=== PATIENT | female | born 1985 | race Two or more races ===

== ENCOUNTER 2017-04-10 22:24 | Emergency (ER) | payer MEDICAID ==
[~2017-04-10] VITALS: Ht 154.9 cm; Wt 81.6 kg
[2017-04-11 01:52] VITALS: BP 118/66
== END 2017-04-11 01:54 | disposition home or self-care (01) ==
LOC: ER 22:39
DX: O99.512 Diseases of the respiratory system complicating pregnancy, second trimester (principal); O98.812 Other maternal infectious and parasitic diseases complicating pregnancy, second trimester; O26.892 Other specified pregnancy related conditions, second trimester; J40 Bronchitis, not specified as acute or chronic; Z3A.23 23 weeks gestation of pregnancy

== ENCOUNTER 2017-06-28 20:31 | Observation (INO) | payer MEDICAID | END 2017-06-28 21:29 | disposition left against medical advice (07) | DRG 566 | LOC: LDRP 20:31 | PROVIDERS: ADMIT Obstetrics & Gynecology; ATTEND Obstetrics & Gynecology | DX: O62.9 Abnormality of forces of labor, unspecified (principal); O26.893 Other specified pregnancy related conditions, third trimester; M54.9 Dorsalgia, unspecified; Z3A.34 34 weeks gestation of pregnancy | CPT/HCPCS: 59025; 81002; G0378 ==